=== PATIENT | male | born 1995 | race Caucasian/White ===

== ENCOUNTER 2016-11-04 17:49 | Emergency (ER) | payer OTHER ==
[~2016-11-04] VITALS: Ht 172.7 cm; Wt 69.2 kg
[2016-11-04 17:53] VITALS: TEMP 36.7; Ht 172.7 cm; Wt 69.2 kg
[2016-11-04] MEDS ORDERED: SODIUM CHLORIDE 0.9% 1000ML 1,000 ML IV STA (18:18)
--- NOTE | 2016-11-04 18:20 | EMERGENCY ROOM VISIT NOTE ---
History Report prepared by Susanna: Randi Allen Under the Supervision of: Dr. Mick Gallegos D.O. 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 Frequent h/a, lightheaded. Denies abd pain/n/v. Denies previous hx of same. History of Present Illness The patient is a 21 year old male who presents to the Emergency Room with complaints of an episode of rectal bleeding that occurred 30 minutes ago. The patient states that he had a bowel movement thirty minutes prior to arrival and noticed blood when he wiped and reports dark red blood in the toilet. He states that he had two bowel movements earlier today, but denied seeing any blood prior to thirty minutes ago. The patient denies noticing any hemorrhoids. He denies any pain with the bowel movement or recent constipation. The patient states that he has been feeling lightheaded since he noticed the blood. He denies any active medical problems and denies being on any daily medications. The patient reports a surgical history of an appendectomy. He denies any tobacco or alcohol use. The patient denies being seen anywhere for his symptoms prior to coming to the emergency department. He denies any abdominal pain, nausea, vomiting, or diarrhea. The patient denies any recent travel. He states that recently he has been having more frequent headaches, but states he does have a history of headaches. Source of History: patient Onset: thirty minutes ago Position: other (rectal) Quality: other (bleeding) Timing: other (1 episode) Associated Symptoms: No nausea, No vomiting, No abdominal pain, No diarrhea Note: Associated Symptoms: lightheaded Review of Systems See HPI for pertinent positives & negatives. A total of 10 systems reviewed and were otherwise negative. Past Medical & Surgical Surgical Problems: (1) Hx of appendectomy Family History Heart disease Hypertension Social History Smoking Status: Never Smoker Smokeless Tobacco Use: No Alcohol Use: none Marital Status: single Occupation Status: [employer] student Current/Historical Medications No Active Prescriptions or Reported Meds Allergies Coded Allergies: Acetaminophen (Verified Allergy, Intermediate, Hives, 11/04/16) Physical Exam Vital Signs Date Time Temp Pulse Resp B/P (MAP) Pulse Ox O2 Delivery O2 Flow Rate FiO2 11/04/16 19:28 84 16 106/55 98 11/04/16 19:00 69 16 106/55 100 Room Air 11/04/16 17:53 36.7 74 16 135/77 98 Room Air Physical Exam GENERAL: Patient is awake, alert, and in no acute distress. Patient is resting comfortably and showing no signs of anxiety EYES: The conjunctivae are clear. The pupils are round and reactive. EARS, NOSE, MOUTH AND THROAT: The nose is without any evidence of any deformity. Mucous membranes are moist tongue is midline NECK: The neck is nontender and supple. RESPIRATORY: Normal respiratory effort is noted there is no evidence of wheezing rhonchi or rales CARDIOVASCULAR: Regular rate and rhythm noted there no murmurs rubs or gallops normal S1 normal S2 GASTROINTESTINAL: The abdomen is soft. Bowel sounds are present in all quadrants. Abdomen is nontender. Rectal exam revealed brown stool that is heme positive. MUSCULOSKELETAL/EXTREMITIES: There is no evidence of gross deformity full range of motion is noted in the hips and shoulders SKIN: There is no obvious evidence of any rash. There are no petechiae, pallor or cyanosis noted. NEUROLOGIC: Patient is awake alert and oriented x3 strength is symmetric patellar reflexes are 2+ bilaterally Medical Decision & Procedures ER Provider Diagnostic Interpretation: X-ray results as stated below per interpretation by me and the radiologist. ABDOMEN 2VIEW W/PA CHEST RTN HISTORY: 21 years-old Male acute abdominal pain with bloody stools COMPARISON: None available TECHNIQUE: Frontal view of the chest with erect and supine views of the abdomen FINDINGS: Cardiomediastinal and hilar silhouettes are within normal limits. No pneumothorax, pleural effusion or focal airspace consolidation. Bones are grossly intact. No pneumoperitoneum on the upright projection. There is no organomegaly, urolithiasis or evidence of bowel obstruction. Mild to moderate stool burden noted. IMPRESSION: Unremarkable acute abdominal series radiographs. The above report was generated using voice recognition software. It may contain grammatical, syntax or spelling errors. Electronically signed by: Huan Crane M.D. 11/04/2016 7:04 PM Dictated Date/Time: 11/04/2016 7:01 PM Laboratory Results 11/04/16 18:30 Red Blood Count 4.76, Mean Corpuscular Volume 85.9, Mean Corpuscular Hemoglobin 29.6, Mean Corpuscular Hemoglobin Concent 34.5, Mean Platelet Volume 9.1, Neutrophils (%) (Auto) 51.0, Lymphocytes (%) (Auto) 38.5, Monocytes (%) (Auto) 6.9, Eosinophils (%) (Auto) 3.2, Basophils (%) (Auto) 0.3, Neutrophils # (Auto) 3.67, Lymphocytes # (Auto) 2.77, Monocytes # (Auto) 0.50, Eosinophils # (Auto) 0.23, Basophils # (Auto) 0.02 11/04/16 18:30 Test 11/04/16 18:25 11/04/16 18:30 Urine Color YELLOW Urine Appearance CLEAR (CLEAR) Urine pH 5.5 (4.5-7.5) Urine Specific [place] 1.013 (1.000-1.030) Urine Protein NEG (NEG) Urine Glucose (UA) NEG (NEG) Urine Ketones NEG (NEG) Urine Occult Blood NEG (NEG) Urine Nitrite NEG (NEG) Urine Bilirubin NEG (NEG) Urine Urobilinogen NEG (NEG) Urine Leukocyte Esterase NEG (NEG) White Blood Count 7.20 K/uL (4.8-10.8) Red Blood Count 4.76 M/uL (4.7-6.1) Hemoglobin 14.1 g/dL (14.0-18.0) Hematocrit 40.9 % (42-52) Mean Corpuscular Volume 85.9 fL (80-100) Mean Corpuscular Hemoglobin 29.6 pg (25-34) Mean Corpuscular Hemoglobin Concent 34.5 g/dl (32-36) Platelet Count 197 K/uL (130-400) Mean Platelet Volume 9.1 fL (7.4-10.4) Neutrophils (%) (Auto) 51.0 % Lymphocytes (%) (Auto) 38.5 % Monocytes (%) (Auto) 6.9 % Eosinophils (%) (Auto) 3.2 % Basophils (%) (Auto) 0.3 % Neutrophils # (Auto) 3.67 K/uL (1.4-6.5) Lymphocytes # (Auto) 2.77 K/uL (1.2-3.4) Monocytes # (Auto) 0.50 K/uL (0.11-0.59) Eosinophils # (Auto) 0.23 K/uL (0-0.5) Basophils # (Auto) 0.02 K/uL (0-0.2) RDW Standard Deviation 39.6 fL (36.4-46.3) RDW Coefficient of Variation 12.4 % (11.5-14.5) Immature Granulocyte % (Auto) 0.1 % Immature Granulocyte # (Auto) 0.01 K/uL (0.00-0.02) Prothrombin Time 11.5 SECONDS (9.0-12.0) Prothromb Time International Ratio 1.1 (0.9-1.1) Activated Partial Thromboplast Time 26.4 SECONDS (21.0-31.0) Partial Thromboplastin Ratio 1.0 Anion Gap 6.0 mmol/L (3-11) Est Creatinine Clear Calc Drug Dose 103.6 ml/min Estimated GFR () 111.4 Estimated GFR (Non- 96.1 BUN/Creatinine Ratio 16.3 (10-20) Calcium Level 9.2 mg/dl (8.5-10.1) Total Bilirubin 0.3 mg/dl (0.2-1) Direct Bilirubin < 0.1 mg/dl (0-0.2) Aspartate Amino Transf (AST/SGOT) 73 U/L (15-37) Alanine Aminotransferase (ALT/SGPT) 44 U/L (12-78) Alkaline Phosphatase 88 U/L (45-117) Total Protein 7.4 gm/dl (6.4-8.2) Albumin 4.2 gm/dl (3.4-5.0) Lipase 145 U/L (73-393) Laboratory results per my review. Medications Administered Medications (Trade) Dose Ordered Sig/Navya Route Start Time Stop Time Status Last Admin Dose Admin Sodium Chloride 1,000 ml @ 999 mls/hr Q1H1M STAT IV 11/04/16 18:18 11/04/16 19:21 DC 11/04/16 18:38 999 MLS/HR ED Course 1810: The patient was evaluated in room C3. A complete history and physical examination were performed. 1817: Ordered Sodium Chloride 1000 ml @ 999 mls/hr IV. 1915: I reevaluated the patient and he is resting comfortably. I discussed the exam findings with him and I discussed the treatment plan. He verbalized complete understanding and agreement. He is ready to go home. Medical Decision Differential diagnosis: Etiologies such as diverticulosis, AVM, coagulopathy, colitis, inflammatory bowel disease, malignancy, Lizbeth-Barrow tear, esophagitis, peptic ulcer disease , variceal bleed, gastritis, epistaxis, fissure, hemorrhoids, as well as others were entertained. Nursing notes reviewed. The patient is a 21-year-old male who presented to the emergency department for an evaluation of rectal bleeding. The patient describes gross blood per rectum but on exam he had brown stool which was heme positive. This likely represents a rectal source for his bleeding but no definite fissure or hemorrhoid was noted. I discussed the patient's laboratory results with him. He did not have unstable vital signs and his hemoglobin was stable. He was encouraged to follow- up with [facility] this week for reevaluation and to discuss the possibility that he may need a referral to a criminal legal assistant for further evaluation. He was encouraged to return to the emergency apartment immediately if symptoms change worsen or the need arises. Medication Reconcilliation Current Medication List: was personally reviewed by me Impression Primary Impression: Rectal bleeding Scribe Attestation The scribe's documentation has been prepared under my direction and personally reviewed by me in its entirety. I confirm that the note above accurately reflects all work, treatment, procedures, and medical decision making performed by me. Departure Information Dispostion Home / Self-Care Prescriptions No Active Prescriptions or Reported Meds Referrals No Doctor, Assigned (PCP) [facility] Forms HOME CARE DOCUMENTATION FORM, IMPORTANT VISIT INFORMATION, WORK / SCHOOL INSTRUCTIONS Patient Instructions Bleeding Rectal, My [facility] Spool Additional Instructions Follow-up with [facility] this week. Discussed the possibility that you may require a referral to a GI doctor if symptoms do not improve. Consider using an [id number] stool softener such as Colace. Return to the emergency department immediately if symptoms change worsen or the need arises.
[2016-11-04 18:47] LABS: BASO % 0.3 %; BASO ABS # 0.02 K/uL (0-0.2); COMPLETE YES; EOS % 3.2 %; HEMATOCRIT 40.9 % (42-52); IG% 0.1 %; LYMPH % 38.5 %; LYMPH ABS # 2.77 K/uL (1.2-3.4); MEAN CELL VOLUME 85.9 fL (80-100); MEAN CORPUSCULAR HEMOGLOBIN 29.6 pg (25-34); MEAN CORPUSCULAR HGB CONC 34.5 g/dl (32-36); MEAN PLATELET VOLUME 9.1 fL (7.4-10.4); MONO % 6.9 %; PLATELET COUNT 197 K/uL (130-400); RED BLOOD COUNT 4.76 M/uL (4.7-6.1)
[2016-11-04 18:51] LABS: URINE APPEARANCE CLEAR (CLEAR); URINE BILIRUBIN NEG (NEG); URINE COLOR YELLOW; URINE NITRITE NEG (NEG); URINE PH 5.5 (4.5-7.5); URINE SPECIFIC GRAVITY 1.013 (1.000-1.030); UROBILINOGEN NEG (NEG)
[2016-11-04 18:52] LABS: MANUAL MICROSCOPIC REQUIRED? NO; REVIEW REQ? NO
[2016-11-04 18:56] LABS: INR 1.1 (0.9-1.1); PROTHROMBIN TIME (PATIENT) 11.5 SECONDS (9.0-12.0)
[2016-11-04 19:03] LABS: ALT/SGPT 44 U/L (12-78); AST/SGOT 73 U/L (15-37); BLOOD UREA NITROGEN 18 mg/dl (7-18); BUN/CREATININE RATIO 16.3 (10-20); CALCIUM 9.2 mg/dl (8.5-10.1); CARBON DIOXIDE 28 mmol/L (21-32); CHLORIDE 105 mmol/L (98-107); GLUCOSE 113 mg/dl (70-99); POTASSIUM 4.1 mmol/L (3.5-5.1); SODIUM 139 mmol/L (136-145)
--- NOTE | 2016-11-04 19:05 | DIAGNOSTIC IMAGING REPORT ---
ABDOMEN 2VIEW W/PA CHEST RTN HISTORY: 21 years-old Male acute abdominal pain with bloody stools COMPARISON: None available TECHNIQUE: Frontal view of the chest with erect and supine views of the abdomen FINDINGS: Cardiomediastinal and hilar silhouettes are within normal limits. No pneumothorax, pleural effusion or focal airspace consolidation. Bones are grossly intact. No pneumoperitoneum on the upright projection. There is no organomegaly, urolithiasis or evidence of bowel obstruction. Mild to moderate stool burden noted. IMPRESSION: Unremarkable acute abdominal series radiographs. The above report was generated using voice recognition software. It may contain grammatical, syntax or spelling errors. Electronically signed by: Huan Crane M.D. 11/04/2016 7:04 PM Dictated Date/Time: 11/04/2016 7:01 PM
[2016-11-04 19:06] LABS: ALKALINE PHOSPHATASE 88 U/L (45-117)
[2016-11-04 19:28] VITALS: BP 106/55; PULSE 84; O2SAT 98
== END 2016-11-04 19:29 | disposition home or self-care (01) ==
LOC: C.EDB 17:52 → C.EDC 19:29
DX: K62.5 Hemorrhage of anus and rectum (principal); Z82.49 Family history of ischemic heart disease and other diseases of the circulatory system